=== PATIENT | male | born 1945 | race Caucasian/White ===

== ENCOUNTER 2021-01-22 17:51 | Emergency (ER) | payer OTHER ==
[~2021-01-22] VITALS: Ht 175.3 cm; Wt 72.6 kg
[~2021-01-22 17:51] MED LIST: ALBU90OI INH; CEPH500 PO; LISI20 PO; MINO50 PO; MINOCIN PO; Metoprolol Succ25 MG PO; PRODEXEL PO
[2021-01-22 18:19] LABS: Hematocrit 37.2 % (37.0-53.0); Hemoglobin 12.5 g/dL (13.5-17.5); Mean Corpuscular HGB 31.5 pg (26.0-34.0); Mean Corpuscular HGB Conc 33.6 g/dL (31.5-36.5); Mean Corpuscular Volume 94 fL (80-100); Mean Platelet Volume 11.9 fL (9.1-12.4); Platelet Count 192 K/mm3 (150-400); RDW Coefficient Variation 12.8 % (11.7-14.2); Red Blood Cell Count 3.97 M/mm3 (4.30-5.90)
[2021-01-22 18:32] LABS: BASOPHILS ABSOLUTE AUTO 0.03 K/mm3 (0.00-0.23); BASOPHILS PERCENT AUTO 0 % (0-2); EOSINOPHILS ABSOLUTE AUTO 0.07 K/mm3 (0.00-0.68); EOSINOPHILS PERCENT AUTO 1 % (0-6); IMMATURE GRAN ABSOLUTE AUTO 0.03 K/mm3 (0.00-0.10); IMMATURE GRAN PERCENT AUTO 0 % (0-1); LYMPHOCYTES ABSOLUTE AUTO 1.79 K/mm3 (0.84-5.20); LYMPHOCYTES PERCENT AUTO 25 % (21-46); MONOCYTES ABSOLUTE AUTO 0.82 K/mm3 (0.16-1.47); MONOCYTES PERCENT AUTO 11 % (4-13); NEUTROPHILS ABSOLUTE AUTO 4.54 K/mm3 (1.96-9.15); NEUTROPHILS PERCENT AUTO 62 % (41-73); White Blood Cell Count 7.28 K/mm3 (4.00-11.30)
[2021-01-22 18:41] LABS: Alanine Aminotransfer (ALT/SGP 22 U/L (12-78); Albumin, Blood 3.4 g/dL (3.4-5.0); Albumin/Globulin Ratio 0.9 (0.8-1.8); Alk Phos 73 U/L (50-136); Anion Gap 5 mmol/L (6-16); Aspartate Aminotrans (AST/SGOT 19 U/L (12-37); Bilirubin, Total 0.4 mg/dL (0.1-1.0); Blood Urea Nitrogen 17 mg/dL (8-24); Bun/Creatinine Ratio 18.2 (12.0-20.0); CO2, Blood 27 mmol/L (21-32); Calcium, Blood 8.8 mg/dL (8.5-10.1); Chloride, Blood 103 mmol/L (98-108); Creatinine, Blood 0.94 mg/dL (0.60-1.20); Globulin, Blood 3.7 g/dL (2.2-4.0); Glomerular Filtration Rate >60 (60-); Glucose, Blood 99 mg/dL (70-99); Potassium, Blood 3.9 mmol/L (3.5-5.5); Sodium, Blood 135 mmol/L (136-145); Total Protein, Blood 7.1 g/dL (6.4-8.2)
[2021-01-22] MEDS ORDERED: METOPROLOL SUCC25 MG PO (18:47)
[2021-01-22] MEDS ORDERED: PRAM.5 PO (18:48)
[2021-01-22] MEDS ORDERED: TRAZ50 PO (18:49)
[2021-01-22] MEDS ORDERED: Zestril30 MG PO (18:49)
[2021-01-22 19:42] LABS: Source, Urine Clean Catch
[2021-01-22 19:50] LABS: Appearance, Urine Hazy (Clear); Bilirubin, Urine Neg (Neg); Blood, Urine 5+ (Neg); Color, Urine Yellow (P-Yellow); Glucose Qualitative, Urine Neg (Neg); Ketones, Urine Neg (Neg); Leukocyte Esterase, Urine 1+ (Neg); Nitrite, Urine Neg (Neg); Protein, Urine 2+ (Neg); Specific Gravity, Urine 1.015 (1.003-1.022); Urobilinogen, Urine NORM (Normal)
[2021-01-22 20:12] LABS: Bacteria Many /hpf; Red Blood Cells, Urine TNTC /hpf (0-2); Squamous Epithelial Cells Not Seen /hpf (Few)
[2021-01-22] MEDS ORDERED: SULTRIDS PO (20:29)
== END 2021-01-22 21:40 | disposition home or self-care (01) ==
LOC: ER 17:51
PROVIDERS: Physician Assistant
DX: N30.91 Cystitis, unspecified with hematuria (principal); I10 Essential (primary) hypertension; Z87.891 Personal history of nicotine dependence; Z88.5 Allergy status to narcotic agent; Z88.7 Allergy status to serum and vaccine; Z88.8 Allergy status to other drugs, medicaments and biological substances; Z79.899 Other long term (current) drug therapy
CPT/HCPCS: 51798; 74176; 80053; 81001; 85025; 87086; 99284-25; A9270; J7030

== ENCOUNTER 2021-08-09 23:18 | Emergency (ER) | payer OTHER ==
[~2021-08-09] VITALS: Ht 175.3 cm; Wt 63.5 kg
[~2021-08-09 23:18] MED LIST changes: +METOPROLOL SUCC25 MG PO; +PRAM.5 PO; +SULTRIDS PO; +TRAZ50 PO; +Zestril30 MG PO
[2021-08-10 00:04] LABS: BASOPHILS ABSOLUTE AUTO 0.02 K/mm3 (0.00-0.23); BASOPHILS PERCENT AUTO 0 % (0-2); EOSINOPHILS ABSOLUTE AUTO 0.08 K/mm3 (0.00-0.68); EOSINOPHILS PERCENT AUTO 1 % (0-6); Hematocrit 42.4 % (37.0-53.0); Hemoglobin 13.9 g/dL (13.5-17.5); IMMATURE GRAN ABSOLUTE AUTO 0.03 K/mm3 (0.00-0.10); IMMATURE GRAN PERCENT AUTO 0 % (0-1); LYMPHOCYTES ABSOLUTE AUTO 1.98 K/mm3 (0.84-5.20); LYMPHOCYTES PERCENT AUTO 22 % (21-46); MONOCYTES ABSOLUTE AUTO 0.69 K/mm3 (0.16-1.47); MONOCYTES PERCENT AUTO 8 % (4-13); Mean Corpuscular HGB Conc 32.8 g/dL (31.5-36.5); Mean Corpuscular Volume 94 fL (80-100); Mean Platelet Volume 11.7 fL (9.1-12.4); NEUTROPHILS ABSOLUTE AUTO 6.39 K/mm3 (1.96-9.15); NEUTROPHILS PERCENT AUTO 70 % (41-73); Platelet Count 177 K/mm3 (150-400); RDW Coefficient Variation 13.5 % (11.7-14.2); RDW Standard Deviation 47.6 fL (35.1-46.3); Red Blood Cell Count 4.49 M/mm3 (4.30-5.90); White Blood Cell Count 9.19 K/mm3 (4.00-11.30)
[2021-08-10 00:27] LABS: Albumin, Blood 3.5 g/dL (3.4-5.0); Albumin/Globulin Ratio 0.9 (0.8-1.8); Bilirubin, Total 0.4 mg/dL (0.1-1.0); Bun/Creatinine Ratio 20.1 (12.0-20.0); Calcium, Blood 8.9 mg/dL (8.5-10.1); Creatinine, Blood 0.85 mg/dL (0.60-1.20); Globulin, Blood 3.8 g/dL (2.2-4.0); Magnesium, Blood 2.4 mg/dL (1.6-2.4); Potassium, Blood 3.5 mmol/L (3.5-5.5); Total Protein, Blood 7.3 g/dL (6.4-8.2)
== END 2021-08-10 01:42 | disposition home or self-care (01) ==
LOC: ER 23:18
PROVIDERS: Emergency Medicine
DX: I48.91 Unspecified atrial fibrillation (principal); I10 Essential (primary) hypertension; G25.81 Restless legs syndrome; Z87.891 Personal history of nicotine dependence; Z79.899 Other long term (current) drug therapy; Z88.6 Allergy status to analgesic agent; Z88.5 Allergy status to narcotic agent; Z88.7 Allergy status to serum and vaccine
CPT/HCPCS: 71045; 80053; 83735; 83880; 84484; 85025; 93005; 93010; 96374; 96375; 99285-25; J1160

== ENCOUNTER 2021-08-12 23:00 | Emergency (ER) | payer OTHER ==
[~2021-08-12] VITALS: Ht 177.8 cm; Wt 68.0 kg
[2021-08-12 23:46] LABS: BASOPHILS ABSOLUTE AUTO 0.02 K/mm3 (0.00-0.23); BASOPHILS PERCENT AUTO 0 % (0-2); EOSINOPHILS ABSOLUTE AUTO 0.11 K/mm3 (0.00-0.68); EOSINOPHILS PERCENT AUTO 1 % (0-6); Hemoglobin 12.4 g/dL (13.5-17.5); IMMATURE GRAN ABSOLUTE AUTO 0.02 K/mm3 (0.00-0.10); IMMATURE GRAN PERCENT AUTO 0 % (0-1); LYMPHOCYTES ABSOLUTE AUTO 2.03 K/mm3 (0.84-5.20); LYMPHOCYTES PERCENT AUTO 21 % (21-46); MONOCYTES ABSOLUTE AUTO 0.75 K/mm3 (0.16-1.47); MONOCYTES PERCENT AUTO 8 % (4-13); Mean Corpuscular HGB 31.1 pg (26.0-34.0); Mean Corpuscular HGB Conc 33.5 g/dL (31.5-36.5); Mean Corpuscular Volume 93 fL (80-100); Mean Platelet Volume 12.4 fL (9.1-12.4); NEUTROPHILS ABSOLUTE AUTO 6.62 K/mm3 (1.96-9.15); NEUTROPHILS PERCENT AUTO 69 % (41-73); Platelet Count 201 K/mm3 (150-400); RDW Coefficient Variation 13.3 % (11.7-14.2); RDW Standard Deviation 45.3 fL (35.1-46.3); Red Blood Cell Count 3.99 M/mm3 (4.30-5.90); White Blood Cell Count 9.55 K/mm3 (4.00-11.30)
[2021-08-13 00:04] LABS: Albumin, Blood 3.1 g/dL (3.4-5.0); Albumin/Globulin Ratio 0.9 (0.8-1.8); Bilirubin, Total 0.6 mg/dL (0.1-1.0); Bun/Creatinine Ratio 18.9 (12.0-20.0); Calcium, Blood 8.5 mg/dL (8.5-10.1); Creatinine, Blood 0.85 mg/dL (0.60-1.20); Globulin, Blood 3.6 g/dL (2.2-4.0); Total Protein, Blood 6.7 g/dL (6.4-8.2)
[2021-08-13] MEDS ORDERED: PRED20 PO (05:23)
[2021-08-13] MEDS ORDERED: LEVO750 PO (05:23)
== END 2021-08-13 05:53 | disposition home or self-care (01) ==
LOC: ER 23:00
PROVIDERS: Physician Assistant
DX: R06.2 Wheezing (principal); R05.9 Cough, unspecified; I10 Essential (primary) hypertension; Z87.891 Personal history of nicotine dependence; Z88.6 Allergy status to analgesic agent; Z88.5 Allergy status to narcotic agent; Z88.7 Allergy status to serum and vaccine; Z79.899 Other long term (current) drug therapy
CPT/HCPCS: 36415; 71045; 80053; 84484; 85025; 94644; 94645; 94664; A9270; J1100

== ENCOUNTER 2021-10-06 19:27 | Emergency (ER) | payer OTHER ==
[~2021-10-06] VITALS: Ht 175.3 cm; Wt 70.3 kg
[~2021-10-06 19:27] MED LIST changes: +LEVO750 PO; +PRED20 PO
[2021-10-06 20:28] LABS: BASOPHILS ABSOLUTE AUTO 0.03 K/mm3 (0.00-0.23); BASOPHILS PERCENT AUTO 0 % (0-2); EOSINOPHILS PERCENT AUTO 0 % (0-6); Hematocrit 37.9 % (37.0-53.0); Hemoglobin 12.7 g/dL (13.5-17.5); IMMATURE GRAN ABSOLUTE AUTO 0.05 K/mm3 (0.00-0.10); IMMATURE GRAN PERCENT AUTO 0 % (0-1); LYMPHOCYTES ABSOLUTE AUTO 0.76 K/mm3 (0.84-5.20); LYMPHOCYTES PERCENT AUTO 5 % (21-46); MONOCYTES ABSOLUTE AUTO 0.96 K/mm3 (0.16-1.47); MONOCYTES PERCENT AUTO 7 % (4-13); Mean Corpuscular HGB 31.4 pg (26.0-34.0); Mean Corpuscular HGB Conc 33.5 g/dL (31.5-36.5); Mean Corpuscular Volume 94 fL (80-100); Mean Platelet Volume 12.3 fL (9.1-12.4); NEUTROPHILS ABSOLUTE AUTO 12.82 K/mm3 (1.96-9.15); NEUTROPHILS PERCENT AUTO 88 % (41-73); Platelet Count 160 K/mm3 (150-400); RDW Coefficient Variation 14.2 % (11.7-14.2); RDW Standard Deviation 49.2 fL (35.1-46.3); Red Blood Cell Count 4.04 M/mm3 (4.30-5.90); White Blood Cell Count 14.62 K/mm3 (4.00-11.30)
[2021-10-06 20:31] LABS: Influenza A, PCR NEGATIVE (NEGATIVE); Influenza B, PCR NEGATIVE (NEGATIVE); Resp Syncytial Virus, PCR NEGATIVE (NEGATIVE); SARS-Cov-2 (COVID-19) PCR, MMC NEGATIVE (NEGATIVE)
[2021-10-06 20:46] LABS: Albumin, Blood 3.3 g/dL (3.4-5.0); Bilirubin, Total 0.4 mg/dL (0.1-1.0); Bun/Creatinine Ratio 35.3 (12.0-20.0); Calcium, Blood 9.2 mg/dL (8.5-10.1); Creatinine, Blood 0.82 mg/dL (0.60-1.20); Globulin, Blood 3.3 g/dL (2.2-4.0); Potassium, Blood 3.9 mmol/L (3.5-5.5); Total Protein, Blood 6.6 g/dL (6.4-8.2)
[2021-10-06] MEDS ORDERED: LOSA50 PO (21:46)
[2021-10-06] MEDS ORDERED: MELATONIN5 M1 PO (21:46)
[2021-10-06 22:01] LABS: Source, Urine Clean Catch
[2021-10-06 22:07] LABS: Bilirubin, Urine Neg (Neg); Blood, Urine Neg (Neg); Glucose Qualitative, Urine Neg (Neg); Ketones, Urine Neg (Neg); Leukocyte Esterase, Urine Neg (Neg); Nitrite, Urine Neg (Neg); Protein, Urine 1+ (Neg); Specific Gravity, Urine 1.015 (1.003-1.022); Urobilinogen, Urine 1+ (Normal)
[2021-10-06 22:17] LABS: Appearance, Urine Clear (Clear); Color, Urine Yellow (P-Yellow)
[2021-10-06] MEDS ORDERED: Vibramycin100 MG PO (22:48)
== END 2021-10-06 23:33 | disposition home or self-care (01) ==
LOC: ER 19:27
PROVIDERS: Emergency Medicine; Student in an Organized Health Care Education/Training Program
DX: I48.91 Unspecified atrial fibrillation (principal); R47.9 Unspecified speech disturbances; I10 Essential (primary) hypertension; J44.9 Chronic obstructive pulmonary disease, unspecified; Z79.899 Other long term (current) drug therapy; Z88.5 Allergy status to narcotic agent; Z88.8 Allergy status to other drugs, medicaments and biological substances; Z87.891 Personal history of nicotine dependence; Z20.822 Contact with and (suspected) exposure to COVID-19
CPT/HCPCS: 0241U; 36415; 71045; 80053; 83880; 84484; 85025; 93005; 93010; A9270; J0696; J3475; J7030

== ENCOUNTER → 2022-07-09 | Outpatient (CLI) | payer OTHER ==
[~2022-07-09] MED LIST changes: +LOSA50 PO; +MELATONIN5 M1 PO; +Vibramycin100 MG PO
[2022-07-09 18:29] LABS: BASOPHILS ABSOLUTE AUTO 0.03 K/mm3 (0.00-0.23); BASOPHILS PERCENT AUTO 1 % (0-2); EOSINOPHILS ABSOLUTE AUTO 0.03 K/mm3 (0.00-0.68); EOSINOPHILS PERCENT AUTO 1 % (0-6); Hematocrit 37.3 % (37.0-53.0); Hemoglobin 12.5 g/dL (13.5-17.5); IMMATURE GRAN ABSOLUTE AUTO 0.03 K/mm3 (0.00-0.10); IMMATURE GRAN PERCENT AUTO 1 % (0-1); LYMPHOCYTES PERCENT AUTO 25 % (21-46); MONOCYTES ABSOLUTE AUTO 0.62 K/mm3 (0.16-1.47); MONOCYTES PERCENT AUTO 10 % (4-13); Mean Corpuscular HGB 30.6 pg (26.0-34.0); Mean Corpuscular HGB Conc 33.5 g/dL (31.5-36.5); Mean Corpuscular Volume 91 fL (80-100); Mean Platelet Volume 12.1 fL (9.1-12.4); NEUTROPHILS ABSOLUTE AUTO 3.84 K/mm3 (1.96-9.15); NEUTROPHILS PERCENT AUTO 64 % (41-73); Platelet Count 224 K/mm3 (150-400); RDW Coefficient Variation 13.4 % (11.7-14.2); RDW Standard Deviation 44.2 fL (35.1-46.3); Red Blood Cell Count 4.09 M/mm3 (4.30-5.90); White Blood Cell Count 6.05 K/mm3 (4.00-11.30)
[2022-07-09 19:12] LABS: Albumin, Blood 3.3 g/dL (3.4-5.0); Albumin/Globulin Ratio 0.8 (0.8-1.8); Bilirubin, Total 0.5 mg/dL (0.1-1.0); Bun/Creatinine Ratio 20.7 (12.0-20.0); Creatinine, Blood 0.77 mg/dL (0.60-1.20); Globulin, Blood 3.9 g/dL (2.2-4.0); Potassium, Blood 4.1 mmol/L (3.5-5.5); Thyroid Stimulating Hormone 0.889 uIU/mL (0.360-4.800); Total Protein, Blood 7.2 g/dL (6.4-8.2)
== END | disposition home or self-care (01) ==
LOC: LAB SHORT 15:31 → LAB 15:31
PROVIDERS: Family Medicine
DX: I10 Essential (primary) hypertension (principal)
CPT/HCPCS: 80053; 84443; 85025

== ENCOUNTER 2022-09-26 20:17 | Inpatient (IN) | payer OTHER ==
[~2022-09-26] VITALS: Ht 177.8 cm; Wt 65.1 kg
[2022-09-26 21:01] LABS: BASOPHILS ABSOLUTE AUTO 0.03 K/mm3 (0.00-0.23); BASOPHILS PERCENT AUTO 0 % (0-2); EOSINOPHILS ABSOLUTE AUTO 0.01 K/mm3 (0.00-0.68); EOSINOPHILS PERCENT AUTO 0 % (0-6); Hematocrit 37.2 % (37.0-53.0); Hemoglobin 12.9 g/dL (13.5-17.5); IMMATURE GRAN ABSOLUTE AUTO 0.03 K/mm3 (0.00-0.10); IMMATURE GRAN PERCENT AUTO 0 % (0-1); LYMPHOCYTES ABSOLUTE AUTO 0.58 K/mm3 (0.84-5.20); LYMPHOCYTES PERCENT AUTO 5 % (21-46); MONOCYTES ABSOLUTE AUTO 0.32 K/mm3 (0.16-1.47); MONOCYTES PERCENT AUTO 3 % (4-13); Mean Corpuscular HGB 31.5 pg (26.0-34.0); Mean Corpuscular HGB Conc 34.7 g/dL (31.5-36.5); Mean Corpuscular Volume 91 fL (80-100); Mean Platelet Volume 11.7 fL (9.1-12.4); NEUTROPHILS ABSOLUTE AUTO 11.49 K/mm3 (1.96-9.15); NEUTROPHILS PERCENT AUTO 92 % (41-73); Platelet Count 163 K/mm3 (150-400); RDW Standard Deviation 47.3 fL (35.1-46.3); Red Blood Cell Count 4.09 M/mm3 (4.30-5.90); White Blood Cell Count 12.46 K/mm3 (4.00-11.30)
[2022-09-26 21:20] LABS: Albumin, Blood 3.3 g/dL (3.4-5.0); Bilirubin, Total 0.4 mg/dL (0.1-1.0); Bun/Creatinine Ratio 22.2 (12.0-20.0); Creatinine, Blood 0.9 mg/dL (0.60-1.20); Globulin, Blood 3.4 g/dL (2.2-4.0); Potassium, Blood 3.8 mmol/L (3.5-5.5); Total Protein, Blood 6.7 g/dL (6.4-8.2)
[2022-09-26 22:44] LABS: Influenza A, PCR NEGATIVE (NEGATIVE); Influenza B, PCR NEGATIVE (NEGATIVE); Resp Syncytial Virus, PCR NEGATIVE (NEGATIVE); SARS-Cov-2 (COVID-19) PCR, MMC NEGATIVE (NEGATIVE)
[2022-09-27] VITALS (15 sets, daily range): BP systolic 84–139; BP diastolic 37–100
[2022-09-27 00:21] LABS: Source, Urine Clean Catch
[2022-09-27 00:32] LABS: Bilirubin, Urine Neg (Neg); Blood, Urine Neg (Neg); Glucose Qualitative, Urine Neg (Neg); Ketones, Urine Neg (Neg); Leukocyte Esterase, Urine Neg (Neg); Nitrite, Urine Neg (Neg); Protein, Urine Neg (Neg); Urobilinogen, Urine NORM (Normal)
[2022-09-27 00:35] LABS: Appearance, Urine Clear (Clear); Color, Urine Yellow (P-Yellow)
[2022-09-27] MEDS ORDERED: FLOVENT HFA12 GM (02:52)
[2022-09-27] MEDS ORDERED: COMBIVENT RESPIM4 G1 (02:52)
[2022-09-27 04:24] LABS: BASOPHILS ABSOLUTE AUTO 0.03 K/mm3 (0.00-0.23); BASOPHILS PERCENT AUTO 0 % (0-2); EOSINOPHILS PERCENT AUTO 0 % (0-6); Hematocrit 31.3 % (37.0-53.0); Hemoglobin 10.4 g/dL (13.5-17.5); IMMATURE GRAN ABSOLUTE AUTO 0.12 K/mm3 (0.00-0.10); IMMATURE GRAN PERCENT AUTO 1 % (0-1); LYMPHOCYTES ABSOLUTE AUTO 1.74 K/mm3 (0.84-5.20); LYMPHOCYTES PERCENT AUTO 9 % (21-46); MONOCYTES ABSOLUTE AUTO 1.24 K/mm3 (0.16-1.47); MONOCYTES PERCENT AUTO 6 % (4-13); Mean Corpuscular HGB 31.1 pg (26.0-34.0); Mean Corpuscular HGB Conc 33.2 g/dL (31.5-36.5); Mean Corpuscular Volume 94 fL (80-100); NEUTROPHILS ABSOLUTE AUTO 16.73 K/mm3 (1.96-9.15); NEUTROPHILS PERCENT AUTO 84 % (41-73); Platelet Count 141 K/mm3 (150-400); RDW Coefficient Variation 14.1 % (11.7-14.2); Red Blood Cell Count 3.34 M/mm3 (4.30-5.90); White Blood Cell Count 19.86 K/mm3 (4.00-11.30)
[2022-09-27 04:46] LABS: Albumin, Blood 2.5 g/dL (3.4-5.0); Albumin/Globulin Ratio 0.9 (0.8-1.8); Bilirubin, Total 0.9 mg/dL (0.1-1.0); Bun/Creatinine Ratio 21.9 (12.0-20.0); Calcium, Blood 7.7 mg/dL (8.5-10.1); Creatinine, Blood 0.82 mg/dL (0.60-1.20); Globulin, Blood 2.7 g/dL (2.2-4.0); Potassium, Blood 3.5 mmol/L (3.5-5.5); Total Protein, Blood 5.2 g/dL (6.4-8.2)
--- NOTE | 2022-09-27 05:07 | NUR ---
ASSUMPTION OF CARE/TRANSFER NOTE REPORT TAKEN FROM JAY PHILLIPS IN THE ED VIA PHONE. PT TRANSFERRED TO PCU AT 0330. PT NOTED TO BE HYPOTENSIVE. FINISHING BOLUS AT THIS TIME. PT WITH DEMENTIA AND MUTISM AT BASELINE. PULLING AT LINES. ADMISSION QUESTIONS DONE WITH . SITTER NOW AT BEDSIDE D/T PT CONFUSION. SR ON MONITOR WITH HR 70'S. SPO2 >92% ON RA. NO RESPIRATORY/CARDIAC DISTRESS NOTED. PT CALM AND COOPERATIVE. ALERT AND OCCASIONALLY NODDING YES/NO TO SIMPLE QUESTIONS. FOLLOWING SIMPLE DIRECTIONS. BED IN LOWEST POSITION AND CALL LIGHT WITHIN REACH.
--- NOTE | 2022-09-27 05:40 | NUR ---
PATIENT UPDATE PT CONTINUES TO BE HYPOTENSIVE WITH MAP FROM 59-66. TIER OVER EDILSON PLACED CALL TO MD DE LA CRUZ. PT RECEIVED ALMOST 3L'S BOLUS, BNP CAME BACK ELEVATED ON LABS. WITH ORDERS TO SEND PT TO ICU. OTHER VITALS STABLE AT THIS TIME. REPORT GIVEN TO ANGIE PHILLIPS IN THE ICU VIA PHONE. THIS RN CALLED FARHANA TO UPDATE HER ABOUT TRANSFER OF PT. DENIED ANY FURTHER QUESTIONS, GAVE NEW ROOM NUMBER IN ICU. PT TRANSFERRED TO ICU.
--- NOTE | 2022-09-27 05:52 | NUR ---
ASSUMED CARE PT IS CURRENTLY ALERT AND ORIENTED TO SELF ONLY; PERRLA. APPEARS TO INTERMITTENTLY FOLLOW COMMANDS. OCCASIONALLY PULLS AT LINES, BUT IS EASILY REDIRECTABLE. DIFFICULT TO ASSESS FULL MENTATION D/T PT HAVING DEMENTIA/NONVERBAL AT BASELINE. SPO2 >92% ON RA; HR IN THE 80'S; MAP >65 W/ SYSTOLIC IN THE HIGH 90'S-LOW 100'S AT TIME OF THIS NOTE. PT IS CURRENTLY OFF PRESSORS. LUNGS CLEAR BILATERALLY. BT AUSCULTATED X4. SKIN HAS SCATTERED BRUISES T/O W/ SEVERE BRUISING NOTED ON LEFT ELBOW AND BRUISE ON SCALP (PICTURES IN CHART). PULSES NOTED IN ALL EXTREMITIES. PT IS CURRENTLY RESTING QUIETLY AT THIS TIME AND DOES NOT APPEAR TO BE IN ANY DISTRESS.
--- NOTE | 2022-09-27 07:21 | NUR ---
Assumed care. Report received from suzie PHILLIPS. Pt resting in bed, sitter at bedside. Pt alert, dx with dementia/nonverbal. On RA, in no apparent distress. VS stable, will continue to monitor.
--- NOTE | 2022-09-27 12:13 | NUR ---
FAMILY EDUCATED RE: PATIENT IS NONVERBAL. WILL CONTINUE TO ASSESS RISK PATIENT CONDITION CHANGES. FAMILY MEMBER AT BEDSIDE WAS EDUCATED ON IGNITION SOURCES AND RISK OF INJURY WHILE OXYGEN IS IN USE. FAMILY MEMBER DENIES HAVING IGNITION SOURCES IN HIS PERSONAL BELONGINGS AND HAS VERBALIZED UNDERSTANDING OF EDUCATION. FAMILY MEMBER HAS NO FURTHER QUESTIONS AT THIS TIME.
--- NOTE | 2022-09-27 15:01 | NUR ---
TRANSFERRED CARE AT 1500. REPORT GIVEN TO RN ASSUMING CARE. VS STABLE ATT.
--- NOTE | 2022-09-27 16:48 | NUR ---
SHIFT SUMMARY ASSUMED CARE AT 1500. PT IS AWAKE AND ALERT. PT IS NONVERBAL AT BASELINE. PT ABLE TO FOLLOW SIMPLE COMMANDS. PT IMPULSIVE AND PULLS AT LINES/TUBES. 1:1 SITTER AT BEDSIDE. VITAL SIGNS STABLE. PT ON ROOM AIR. PT UP TO BSC TO VOID WITH MINIMAL ASSISTANCE AND PT AMBULATED OUT OF ROOM WITH WALKER WITH MINIMAL ASSISTANCE. IV SALINE LOCKED. PT FAMILY IN AND OUT THROUGHOUT THE SHIFT. WILL CONTINUE TO MONITOR AND REPORT OFF TO ONCOMING RN.
--- NOTE | 2022-09-27 20:00 | NUR ---
ASSUMPTION OF CARE PT SITTING IN BED PLAYING ON IPAD AT BEGINNING OF SHIFT. APPEARS CALM AND RELAXED. NONVERBAL, BUT ABLE TO FOLLOW SOME COMMANDS LIKE SQUEEZING FINGERS. UNAWARE OF SURROUNDINGS AND ABILITIES, PER REPORT PT PULLS AT LINES AND CAN BE DIFFICULT TO REDIRECT. SITTER AT BEDSIDE. VERY INVOLVED IN PT CARE AND HAS BROUGHT PT AN IPAD THAT KEEPS HIM VERY BUSY. HEART SOUNDS ARE REGULAR, BP 140S/80S. SATTING WELL ON ROOM AIR. PT IS MOSTLY CONTINENT BUT DOES REQUIRE SOME REMINDERS TO USE BSC AND USES A WALKER WITH SBA. LACERATION TO FOREHEAD FROM FALL AT HOME.
--- NOTE | 2022-09-27 21:30 | NUR ---
UPDATE PT TRANSFERED TO PCU IN WHEELCHAIR WITH BELONGINGS
[2022-09-28 05:16] VITALS: BP 122/56
--- NOTE | 2022-09-28 05:17 | NUR ---
SHIFT SUMMARY: MAXI IS ALERT AND RESPONDS TO HIS NAME. PT HAS 1:1 SITTER FOR IMPULSIVITY AND HIGH FALL RISK. PT IS NON-VERBAL AT BASELINE. PUREED DIET AND NECTAR THICK LIQUIDS PER SPEECH. PT LIVES WITH HIS AND PLAN IS TO DISCHARGE HOME WITH HOME HEALTH WHEN MEDICALLY STABLE. PT HAS VOIDED SEVERAL TIMES THIS SHIFT. SWALLOWS PILLS CRUSHED IN APPLESAUCE. HE FOCUSES KEENLY ON THE IPADS THAT HIS HAS PROVIDED FOR HIM. PT AMBULATES WITH ONE PERSON ASSIST, HOWEVER FREQUENTLY REQUIRES TWO FOR REDIRECTION. PT IS CONTINENT, GLASSES IN PLACE. DRESSING TO LEFT ELBOW C/D&I. PT IS NOT ABLE TO USE THE CALL LIGHT APPROPRIATLEY. HE IS LYING QUIETLY IN BED UTILIZING THE IPAD. UNABLE TO EDUCATE PT REGARDING FIRE SAFETY, WILL CONTINUE TO MONITOR FOR APPROPRIATNESS OF TEACHING AND REQUEST DAY SHIFT TO EDUCATE PT'S . PT IS NOT REQUIRING SUPPLEMENTAL OXYGEN AT THIS TIME.
[2022-09-28 05:28] LABS: Hematocrit 31.6 % (37.0-53.0); Hemoglobin 10.6 g/dL (13.5-17.5); Mean Corpuscular HGB 30.7 pg (26.0-34.0); Mean Corpuscular HGB Conc 33.5 g/dL (31.5-36.5); Mean Corpuscular Volume 92 fL (80-100); Mean Platelet Volume 11.8 fL (9.1-12.4); Platelet Count 131 K/mm3 (150-400); RDW Coefficient Variation 14.1 % (11.7-14.2); RDW Standard Deviation 47.8 fL (35.1-46.3); Red Blood Cell Count 3.45 M/mm3 (4.30-5.90); White Blood Cell Count 9.03 K/mm3 (4.00-11.30)
[2022-09-28 05:58] LABS: Albumin, Blood 2.7 g/dL (3.4-5.0); Albumin/Globulin Ratio 0.9 (0.8-1.8); Bilirubin, Total 0.5 mg/dL (0.1-1.0); Bun/Creatinine Ratio 14.9 (12.0-20.0); Calcium, Blood 8.4 mg/dL (8.5-10.1); Creatinine, Blood 0.67 mg/dL (0.60-1.20); Potassium, Blood 3.3 mmol/L (3.5-5.5); Total Protein, Blood 5.7 g/dL (6.4-8.2)
[2022-09-28 07:35] VITALS: BP 94/71
--- NOTE | 2022-09-28 10:37 | NUR ---
NURSE NOTE THIS NURSE EDUCATED PATIENT ABOUT SMOKING IN THE HOSPITAL AND HOSPITAL POLICIES. PATIENT IS NONVERBAL BUT HAS NO SMOKING MATERIALS IN ROOM.
[2022-09-28] MEDS ORDERED: CEFP200 PO (15:28)
[2022-09-28] MEDS ORDERED: AZIT500 PO (15:28)
[2022-09-28] MEDS ORDERED: FLOVENT HFA12 GM INH (15:29)
[2022-09-28] MEDS ORDERED: VISBIOME 112.51 EACH PO (15:30)
--- NOTE | 2022-09-28 16:18 | NUR ---
DISCHARGE SUMMARY PATIENT IS ALERT BUT NOT ORIENTED. PATIENT HAS NOT HAD ANY ACUTE EVENTS THIS SHIFT. VITAL SIGNS REVIEWED. PATIENT REMAINS NONVERBAL. PATIENT HAS RETURNED TO BASELINE PER . PATIENT IS BEING DISCHARGED HOME. PATIENTS IS WITH PATIENT AND IS TRANSPORTING PATIENT HOME WITH HOME HEALTH. ANNMARIE WHITFIELD IS WHEELING PATIENT TO PATIENTS HOME.
== END 2022-09-28 15:43 | disposition home health service (06) | DRG 871 ==
LOC: ER 20:17 → PCU 20:18 → ICUE 09-27 03:40 → PCU 09-27 03:40 → ICUE 09-27 05:42 → MEDS 09-27 21:10
PROVIDERS: Emergency Medicine; Family Medicine; Student in an Organized Health Care Education/Training Program; ADMIT Internal Medicine
DX: A41.9 Sepsis, unspecified organism (principal); G92.8 Other toxic encephalopathy; J18.9 Pneumonia, unspecified organism; J98.11 Atelectasis; I48.92 Unspecified atrial flutter; E87.1 Hypo-osmolality and hyponatremia; J44.0 Chronic obstructive pulmonary disease with (acute) lower respiratory infection; J44.1 Chronic obstructive pulmonary disease with (acute) exacerbation; Z20.822 Contact with and (suspected) exposure to COVID-19; Z66 Do not resuscitate; E86.0 Dehydration; R65.20 Severe sepsis without septic shock; F03.90 Unspecified dementia, unspecified severity, without behavioral disturbance, psychotic disturbance, mood disturbance, and anxiety; S00.83XA Contusion of other part of head, initial encounter; I10 Essential (primary) hypertension; D64.9 Anemia, unspecified; G25.81 Restless legs syndrome; E87.8 Other disorders of electrolyte and fluid balance, not elsewhere classified; R47.02 Dysphasia; E87.6 Hypokalemia; Z88.5 Allergy status to narcotic agent; Z88.7 Allergy status to serum and vaccine; Z88.8 Allergy status to other drugs, medicaments and biological substances; Z79.899 Other long term (current) drug therapy; Z87.891 Personal history of nicotine dependence; Z98.890 Other specified postprocedural states; W19.XXXA Unspecified fall, initial encounter
CPT/HCPCS: 0241U; 36415; 51701; 70450; 71046; 80053; 81003; 83605; 83880; 85025; 85027; 87040; 87070; 87205; 92526; 92610; 93005; 93010; 94640; 94664; 94762; 96365-59; 97116; 97162; 97165; 97530; 99285-25; A9270; J0456; J0696; J1650; J2543; J7030; J7050

== ENCOUNTER 2022-10-12 20:30 | Emergency (ER) | payer OTHER ==
[~2022-10-12] VITALS: Ht 177.8 cm; Wt 63.5 kg
[~2022-10-12 20:30] MED LIST changes: +AZIT500 PO; +CEFP200 PO; +COMBIVENT RESPIM4 G1; +FLOVENT HFA12 GM; +FLOVENT HFA12 GM INH; +VISBIOME 112.51 EACH PO
[2022-10-12 20:31] VITALS: BP 120/43
== END 2022-10-12 23:33 | disposition home or self-care (01) ==
LOC: ER 20:30
DX: S09.90XA Unspecified injury of head, initial encounter (principal); S61.412A Laceration without foreign body of left hand, initial encounter; S51.012A Laceration without foreign body of left elbow, initial encounter; W18.30XA Fall on same level, unspecified, initial encounter; Z88.7 Allergy status to serum and vaccine; Z88.8 Allergy status to other drugs, medicaments and biological substances; Z88.5 Allergy status to narcotic agent; Z79.899 Other long term (current) drug therapy; I10 Essential (primary) hypertension; I48.91 Unspecified atrial fibrillation; Z87.891 Personal history of nicotine dependence
CPT/HCPCS: 70450; 99283-25

== ENCOUNTER 2022-12-17 19:46 | Emergency (ER) | payer OTHER ==
[~2022-12-17] VITALS: Ht 167.6 cm; Wt 65.8 kg
[2022-12-17 19:55] VITALS: BP 126/61
[2022-12-17] MEDS ORDERED: LOSA50 PO (19:55)
== END 2022-12-17 22:41 | disposition home or self-care (01) ==
LOC: ER 19:46
DX: S01.01XA Laceration without foreign body of scalp, initial encounter (principal); F03.90 Unspecified dementia, unspecified severity, without behavioral disturbance, psychotic disturbance, mood disturbance, and anxiety; I10 Essential (primary) hypertension; Z88.5 Allergy status to narcotic agent; Z88.6 Allergy status to analgesic agent; Z88.7 Allergy status to serum and vaccine; Z87.891 Personal history of nicotine dependence; W01.198A Fall on same level from slipping, tripping and stumbling with subsequent striking against other object, initial encounter
CPT/HCPCS: 12004; 70450; 99283-25

== ENCOUNTER 2023-03-08 15:17 | Emergency (ER) | payer OTHER ==
[~2023-03-08] VITALS: Ht 177.8 cm; Wt 66.7 kg
[2023-03-08 15:36] VITALS: BP 127/52
[2023-03-08] MEDS ORDERED: FLOVENT HFA12 GM INH (15:44)
[2023-03-08] MEDS ORDERED: COMBIVENT RESPIM4 G1 INH (15:44)
== END 2023-03-08 17:30 | disposition home or self-care (01) ==
LOC: ER 15:17
DX: S01.01XA Laceration without foreign body of scalp, initial encounter (principal); I10 Essential (primary) hypertension; W01.10XA Fall on same level from slipping, tripping and stumbling with subsequent striking against unspecified object, initial encounter; I48.92 Unspecified atrial flutter; Z88.8 Allergy status to other drugs, medicaments and biological substances; Z88.5 Allergy status to narcotic agent; Z88.7 Allergy status to serum and vaccine; Z79.899 Other long term (current) drug therapy; Z87.891 Personal history of nicotine dependence
CPT/HCPCS: 70450; 72125; 99284-25

== ENCOUNTER 2023-04-01 16:12 | Emergency (ER) | payer OTHER ==
[~2023-04-01] VITALS: Ht 175.3 cm; Wt 65.8 kg
[~2023-04-01 16:12] MED LIST changes: +COMBIVENT RESPIM4 G1 INH
[2023-04-01 16:48] LABS: BASOPHILS ABSOLUTE AUTO 0.02 K/mm3 (0.00-0.23); BASOPHILS PERCENT AUTO 0 % (0-2); EOSINOPHILS PERCENT AUTO 0 % (0-6); Hematocrit 34.5 % (37.0-53.0); Hemoglobin 11.2 g/dL (13.5-17.5); IMMATURE GRAN ABSOLUTE AUTO 0.05 K/mm3 (0.00-0.10); IMMATURE GRAN PERCENT AUTO 1 % (0-1); LYMPHOCYTES ABSOLUTE AUTO 0.46 K/mm3 (0.84-5.20); LYMPHOCYTES PERCENT AUTO 5 % (21-46); MONOCYTES PERCENT AUTO 3 % (4-13); Mean Corpuscular HGB 30.9 pg (26.0-34.0); Mean Corpuscular HGB Conc 32.5 g/dL (31.5-36.5); Mean Corpuscular Volume 95 fL (80-100); Mean Platelet Volume 11.7 fL (9.1-12.4); NEUTROPHILS ABSOLUTE AUTO 9.24 K/mm3 (1.96-9.15); NEUTROPHILS PERCENT AUTO 92 % (41-73); Platelet Count 167 K/mm3 (150-400); RDW Coefficient Variation 13.6 % (11.7-14.2); RDW Standard Deviation 47.8 fL (35.1-46.3); Red Blood Cell Count 3.62 M/mm3 (4.30-5.90); White Blood Cell Count 10.07 K/mm3 (4.00-11.30)
[2023-04-01 17:16] LABS: Albumin, Blood 2.8 g/dL (3.4-5.0); Albumin/Globulin Ratio 0.8 (0.8-1.8); Bilirubin, Total 0.4 mg/dL (0.1-1.0); Bun/Creatinine Ratio 25.6 (12.0-20.0); Creatinine, Blood 0.82 mg/dL (0.60-1.20); Globulin, Blood 3.6 g/dL (2.2-4.0); Potassium, Blood 4.4 mmol/L (3.5-5.5); Total Protein, Blood 6.4 g/dL (6.4-8.2)
[2023-04-01] MEDS ORDERED: Mucinex600 MG PO (18:19)
[2023-04-01] MEDS ORDERED: Amoxicillin875 MG PO (18:19)
[2023-04-01 18:35] VITALS: BP 150/95
== END 2023-04-01 18:37 | disposition home or self-care (01) ==
LOC: ER 16:12
PROVIDERS: Emergency Medicine
DX: T17.890A Other foreign object in other parts of respiratory tract causing asphyxiation, initial encounter (principal); R05.9 Cough, unspecified; I10 Essential (primary) hypertension; F03.90 Unspecified dementia, unspecified severity, without behavioral disturbance, psychotic disturbance, mood disturbance, and anxiety; Z88.7 Allergy status to serum and vaccine; Z88.5 Allergy status to narcotic agent; Z88.6 Allergy status to analgesic agent; Z79.899 Other long term (current) drug therapy; Z87.891 Personal history of nicotine dependence
CPT/HCPCS: 31720; 71045; 80053; 85025; 87070; 87205; 93005; 93010; 99285-25; A9270